=== PATIENT | female | born 1950 | race Caucasian/White ===

== ENCOUNTER → 2018-07-31 | Outpatient (CLI) | payer OTHER | LOC: BRMIMAGING 15:13 | PROVIDERS: ATTEND Family Medicine | DX: S92.424A Nondisplaced fracture of distal phalanx of right great toe, initial encounter for closed fracture (principal); M20.11 Hallux valgus (acquired), right foot; M19.071 Primary osteoarthritis, right ankle and foot | CPT/HCPCS: 73630-PO ==